=== PATIENT | female | born 1925 | race Caucasian/White ===

== ENCOUNTER 2016-12-24 15:48 | Emergency (ER) | payer OTHER ==
[~2016-12-24] VITALS: Ht 160 cm; Wt 65.7 kg
[~2016-12-24 15:48] MED LIST: ARICEPT10 MG PO; ASPIRIN81 M1 PO; Bactrim,Septra DS 80 PO; CALCIUM + D 601 EACH PO; CETAPHIL CLEAN240 ML TP; DUONEB 2.5-0.5 M3 ML IH; GLIPIZIDE10 MG PO; GLIPIZIDE5 MG PO; GLUTOSE 1537.5 GM PO; IBUPROFEN800 MG PO; KEFLEX500 MG PO; KETOCONAZOLE60 GM TP; LEVAQUIN500 MG PO; LISINOPRIL2.5 MG PO; LORATADINE10 M2 PO; METFORMIN HCL500 MG PO; NOVOLOG PE100 UNITS/ SC; ONE-A-DAY WOME1 EAC1 PO; PROVENTIL,2.5 MG/0.5 IH; Q-TUSSIN DM SY240 ML PO; RANITIDINE HCL150 MG PO; RISAMINE OINTM113 GM TP; SARNA ANTI-ITC222 ML TP; SENNA8.6 MG PO; SENOKOT8.6 MG PO; ST. JOSEPH ASPI81 MG PO; TYLENOL REGULA325 MG PO; ULTRAM50 MG PO; ZOLOFT50 M1 PO; ZOLOFT50 MG PO; predniSONE PO
[2016-12-24 17:15] LABS: BASOPHIL COUNT 0.1 K/uL (0-0.1); EOSINOPHIL (%) 3.1 % (0-5); EOSINOPHIL COUNT 0.2 K/uL (0-0.3); IMMATURE GRANULOCYTE (%) 0.3 % (0.0-0.7); INSTRUMENT ABS NEUTROPHIL CT 4.1 K/uL; LYMPHOCYTE COUNT 1.4 K/uL (1.0-2.8); MCH 30.9 PG (29.0-34.0); MCHC 33.1 G/DL (30.0-36.0); MCV 93.1 FL (83-99); MEAN PLAT.VOLUME 9.1 uM^3 (9.5-12.4); MONOCYTE (%) 9.4 % (3-12); MONOCYTE COUNT 0.6 K/uL (0-0.8); NEUTROPHIL (%) 64.1 % (45-76); NEUTROPHIL COUNT 4.1 K/uL (1.8-6.4); PLATELET COUNT 157 K/uL (156-360); RBC DIS.WIDTH-CV 13.2 % (11.8-14.6); RED BLOOD COUNT 3.76 M/uL (3.80-5.20); WHITE BLOOD COUNT 6.4 K/uL (4.1-10.2)
[2016-12-24 17:34] LABS: CHLORIDE 108 mEq/L (99-109); POTASSIUM 4.1 mEq/L (3.7-5.4); SODIUM 137 mEq/L (136-147)
[2016-12-24 17:36] LABS: GLUCOSE 145 mg/dL (70-99)
[2016-12-24 17:37] LABS: ANION GAP 3 MEQ/L (2-14)
[2016-12-24 17:38] LABS: TOTAL BILIRUBIN 0.3 mg/dL (0.0-1.0)
[2016-12-24 17:39] LABS: ALKALINE PHOSPHATASE 61 IU/L (3-129)
[2016-12-24 17:40] LABS: GFR ESTIMATE (CALCULATED) 50 mL/min/
[2016-12-24 17:41] LABS: UREA NITROGEN (BUN) 15 mg/dL (9-23)
[2016-12-24 17:43] LABS: LIPASE 26 U/L (1.0-51.0)
[2016-12-24 17:57] LABS: ADD MIUA? YES; BILIRUBIN NEGATIVE; BLOOD MODERATE; GLUCOSE (STRIP) NEGATIVE; KETONES NEGATIVE; LEUKOCYTES LARGE; NITRITE NEGATIVE; PROTEIN (STRIP) 30; SPECIFIC GRAVITY 1.014 (1.000-1.030); UROBILINOGEN 0.2 MG/DL (0.2-1.0)
[2016-12-24 17:59] LABS: COLOR YELLOW ((YELLOW))
[2016-12-24 18:13] LABS: BACTERIA 2+ /HPF; CASTS NONE SEEN /LPF; CRYSTALS NONE SEEN; EPITHELIAL CELLS 2+ /HPF; MUCUS NONE SEEN /LPF; UCUL ADDED? YES; WHITE BLOOD CELLS 30-40 /HPF (0-5)
[2016-12-24] MEDS ORDERED: LEVAQUIN750 MG PO (19:43)
[2016-12-24] MEDS ORDERED: FLEET ENEMA-AD118 ML PR (19:43)
[2016-12-24] MEDS ORDERED: MIRALAX255 GM PO (19:48)
[2016-12-24 20:55] VITALS: BP 135/63
== END 2016-12-24 20:57 | disposition home or self-care (01) ==
LOC: EME 15:48
PROVIDERS: Emergency Medicine
DX: N39.0 Urinary tract infection, site not specified (principal); K59.00 Constipation, unspecified; R91.8 Other nonspecific abnormal finding of lung field; G30.9 Alzheimer's disease, unspecified; F02.80 Dementia in other diseases classified elsewhere, unspecified severity, without behavioral disturbance, psychotic disturbance, mood disturbance, and anxiety; J45.909 Unspecified asthma, uncomplicated; E11.9 Type 2 diabetes mellitus without complications; I10 Essential (primary) hypertension; F32.9 Major depressive disorder, single episode, unspecified; M81.0 Age-related osteoporosis without current pathological fracture; Z79.82 Long term (current) use of aspirin
CPT/HCPCS: 74177; 80053; 81003; 83690; 85025; 87077; 87086; 87186; 99281; 99285; J7030

== ENCOUNTER 2017-01-16 15:40 | Emergency (ER) | payer OTHER ==
[~2017-01-16] VITALS: Ht 167.6 cm; Wt 65.8 kg
[~2017-01-16 15:40] MED LIST changes: +FLEET ENEMA-AD118 ML PR; +LEVAQUIN750 MG PO; +MIRALAX255 GM PO
[2017-01-16 18:11] VITALS: BP 122/60
== END 2017-01-16 18:17 | disposition home or self-care (01) ==
LOC: EME 15:40
DX: Z04.3 Encounter for examination and observation following other accident (principal); G30.9 Alzheimer's disease, unspecified; F02.80 Dementia in other diseases classified elsewhere, unspecified severity, without behavioral disturbance, psychotic disturbance, mood disturbance, and anxiety; I10 Essential (primary) hypertension; E11.9 Type 2 diabetes mellitus without complications; J45.909 Unspecified asthma, uncomplicated; M81.0 Age-related osteoporosis without current pathological fracture; F32.9 Major depressive disorder, single episode, unspecified
CPT/HCPCS: 99281; 99284

== ENCOUNTER 2017-04-18 08:50 | Emergency (ER) | payer OTHER ==
[~2017-04-18] VITALS: Ht 152.4 cm; Wt 63.8 kg
[2017-04-18] MEDS ORDERED: AUGMENTIN875 MG PO (09:53)
[2017-04-18 12:09] VITALS: BP 120/48
== END 2017-04-18 12:11 | disposition home or self-care (01) ==
LOC: EME 08:50
DX: H66.92 Otitis media, unspecified, left ear (principal); S01.312A Laceration without foreign body of left ear, initial encounter; E11.9 Type 2 diabetes mellitus without complications; I10 Essential (primary) hypertension; F02.80 Dementia in other diseases classified elsewhere, unspecified severity, without behavioral disturbance, psychotic disturbance, mood disturbance, and anxiety; G30.9 Alzheimer's disease, unspecified

== ENCOUNTER 2017-06-27 20:27 | Emergency (ER) | payer OTHER ==
[~2017-06-27] VITALS: Ht 152.4 cm; Wt 67.2 kg
[~2017-06-27 20:27] MED LIST changes: +AUGMENTIN875 MG PO
[2017-06-28] VITALS: BP 112/61
== END 2017-06-28 | disposition home or self-care (01) ==
LOC: EME 20:27
DX: M54.9 Dorsalgia, unspecified (principal); W19.XXXA Unspecified fall, initial encounter; Y92.129 Unspecified place in nursing home as the place of occurrence of the external cause; G30.9 Alzheimer's disease, unspecified; F02.80 Dementia in other diseases classified elsewhere, unspecified severity, without behavioral disturbance, psychotic disturbance, mood disturbance, and anxiety; I10 Essential (primary) hypertension; J45.909 Unspecified asthma, uncomplicated; E11.9 Type 2 diabetes mellitus without complications; M81.0 Age-related osteoporosis without current pathological fracture; F32.9 Major depressive disorder, single episode, unspecified; Z79.82 Long term (current) use of aspirin; Z79.84 Long term (current) use of oral hypoglycemic drugs
CPT/HCPCS: 99281; 99284

== ENCOUNTER 2017-08-09 19:21 | Emergency (ER) | payer OTHER ==
[~2017-08-09] VITALS: Ht 157.5 cm; Wt 68.2 kg
[2017-08-09 20:46] LABS: HEMATOCRIT 32.7 % (36.0-46.0); HEMOGLOBIN 11.3 G/DL (11.9-15.5); MCH 32.8 PG (29.0-34.0); MCHC 34.6 G/DL (30.0-36.0); MCV 94.8 FL (83-99); PLATELET COUNT 176 K/uL (156-360); RBC DIS.WIDTH-CV 13.2 % (11.8-14.6); RBC DIS.WIDTH-SD 45.5 % (39-53); RED BLOOD COUNT 3.45 M/uL (3.80-5.20); WHITE BLOOD COUNT 6.8 K/uL (4.1-10.2)
[2017-08-09 20:52] LABS: ALBUMIN 3.4 g/dL (3.2-4.8); CHLORIDE 107 mEq/L (99-109); POTASSIUM 4.5 mEq/L (3.7-5.4); SODIUM 137 mEq/L (136-147)
[2017-08-09 20:54] LABS: GLUCOSE 133 mg/dL (70-99); TOTAL PROTEIN 6.2 g/dL (6.4-8.3)
[2017-08-09 20:56] LABS: TOTAL BILIRUBIN 0.3 mg/dL (0.0-1.0)
[2017-08-09 20:58] LABS: ALKALINE PHOSPHATASE 83 IU/L (3-129); CREATININE 1.7 mg/dL (0.6-1.3); GFR ESTIMATE (CALCULATED) 30 mL/min/
[2017-08-09 20:59] LABS: UREA NITROGEN (BUN) 20 mg/dL (9-23)
[2017-08-09 21:00] LABS: AST (GOT) 21 IU/L (2-34)
[2017-08-09 21:01] LABS: ALT (GPT) 10 IU/L (3-49)
[2017-08-09 21:24] LABS: APPEARANCE SL.HAZY ((CLEAR)); BILIRUBIN NEGATIVE; BLOOD MODERATE; COLOR YELLOW ((YELLOW)); GLUCOSE (STRIP) NEGATIVE; KETONES NEGATIVE; LEUKOCYTES LARGE; NITRITE POSITIVE; PROTEIN (STRIP) 30; SPECIFIC GRAVITY 1.009 (1.000-1.030); UROBILINOGEN 0.2 MG/DL (0.2-1.0)
[2017-08-09] MEDS ORDERED: VANTIN200 MG PO (21:45)
[2017-08-09 21:58] LABS: BACTERIA 2+ /HPF; EPITHELIAL CELLS 1+ /HPF; MUCUS RARE /LPF; UCUL ADDED? YES; WHITE BLOOD CELLS TNTC /HPF (0-5)
[2017-08-09 21:59] LABS: AMORPHOUS PHOSPHATE CRYSTALS RARE; HYALINE CASTS 0-5 /LPF
[2017-08-09 23:00] VITALS: BP 143/64
== END 2017-08-09 23:34 ==
LOC: EME → EDBD 19:21 → EME 19:21
PROVIDERS: Emergency Medicine
DX: N39.0 Urinary tract infection, site not specified (principal); F02.80 Dementia in other diseases classified elsewhere, unspecified severity, without behavioral disturbance, psychotic disturbance, mood disturbance, and anxiety; G30.9 Alzheimer's disease, unspecified; E11.9 Type 2 diabetes mellitus without complications; Z87.440 Personal history of urinary (tract) infections; I10 Essential (primary) hypertension; J45.909 Unspecified asthma, uncomplicated; F32.9 Major depressive disorder, single episode, unspecified; M81.0 Age-related osteoporosis without current pathological fracture; Z79.82 Long term (current) use of aspirin
CPT/HCPCS: 71046; 80053; 81003; 85027; 87086 GA; 99281; 99285; J0696

== ENCOUNTER → 2017-08-16 | Outpatient (CLI) | payer OTHER ==
[~2017-08-16] MED LIST changes: +VANTIN200 MG PO
== END | disposition home or self-care (01) ==
LOC: RAD 11:12
DX: R13.10 Dysphagia, unspecified (principal); R09.89 Other specified symptoms and signs involving the circulatory and respiratory systems
CPT/HCPCS: 74230; 92611 GN; G8996 GN CI; G8997 GN CI; G8998 GN CI